=== PATIENT | female | born 1965 | race Caucasian/White ===

== ENCOUNTER 2019-07-09 16:03 | Emergency (ER) | payer OTHER ==
[~2019-07-09] VITALS: Ht 170.2 cm; Wt 68.8 kg
[~2019-07-09 16:03] MED LIST: ALBU18HF INHALATION; HYDR-3980 PO; IBUP800T48 PO; NALO4SPR NS; PRED20TA PO
[2019-07-09 16:22] VITALS: Ht 170.2 cm; Wt 68.8 kg
[2019-07-09] MEDS ORDERED: KETOROLAC 30 MG INJ IM STA (16:37)
[2019-07-09 19:15] VITALS: BP 148/99; PULSE 68; RESP 20
== END 2019-07-09 19:25 | disposition home or self-care (01) ==
LOC: E/R 16:03
DX: S29.011A Strain of muscle and tendon of front wall of thorax, initial encounter (principal); R05 Cough; R07.81 Pleurodynia; X58.XXXA Exposure to other specified factors, initial encounter; Y92.9 Unspecified place or not applicable; Z87.891 Personal history of nicotine dependence
CPT/HCPCS: 71045; 93005; 96372; J1885; Z7502